=== PATIENT | female | born 1955 | race Caucasian/White ===

== ENCOUNTER → 2017-08-11 11:19 | Outpatient (CLI) | payer OTHER, SELFPAY ==
--- NOTE | 2017-08-11 | DI.MG.S_ITS ---
BILATERAL DIGITAL SCREENING MAMMOGRAM 3D/2D WITH CAD: 08/11/2017 CLINICAL: Routine screening. Family history of breast cancer. Comparison is made to exams dated: 08/01/2016 mammogram, 07/30/2015 mammogram, and 07/24/2014 mammogram - [facility]. There are scattered fibroglandular elements in both breasts. Current study was also evaluated with a Computer Aided Detection (CAD) system. No significant masses, calcifications, or other findings are seen in either breast. There has been no significant interval change. IMPRESSION: NEGATIVE There is no mammographic evidence of malignancy. A 1 year screening mammogram is recommended. NOTE: For mammograms, a report in lay terms will be sent to the patient. Approximately 15% of breast malignancies will not be visualized mammographically. In the management of a palpable breast mass, a negative mammogram must not discourage biopsy of a clinically suspicious lesion. Electronically Signed By: Tianna romero/daniel:08/11/2017 14:47:50 letter sent: Normal Exam ACR BI-RADS Category 1: Negative 3341F
== END ==
PROVIDERS: PCP Family Medicine; Visit Provider Family Medicine
DX: Z12.31 Encounter for screening mammogram for malignant neoplasm of breast (principal); Z80.3 Family history of malignant neoplasm of breast
CPT/HCPCS: 77063; 77067

== ENCOUNTER → 2018-04-19 13:36 | Outpatient (CLI) | payer OTHER, SELFPAY ==
--- NOTE | 2018-04-19 | DI.RAD.S_ITS ---
PROCEDURE: XR CHEST 2V INDICATIONS: COUGH TECHNIQUE: 2 views of the chest were acquired. COMPARISON: [facility], CHEST 2 VIEW, 03/20/2014, 15:25. [facility], CHEST 2 VIEW, 01/21/2014, 10:18. FINDINGS: Surgical changes and devices: None within the chest. Old low cervical spine anterior fusion plate again noted. Lungs and pleura: Lungs are clear. No pleural effusions or pneumothorax. Mediastinum: Mediastinal contours are normal. Heart size is normal. The right medial cardiophrenic fat pad is again seen to be prominent, present at least since 2013. Bones and chest wall: No suspicious bony abnormalities. Soft tissues appear unremarkable. IMPRESSION: Normal for age, source of current cough symptoms is not seen. Dictated by: Aditya Coppola M.D. on 04/19/2018 at 14:20 Approved by: Aditya Coppola M.D. on 04/19/2018 at 14:21
== END ==
PROVIDERS: PCP Family Medicine; Visit Provider Family Medicine
DX: R05 Cough (principal)
CPT/HCPCS: 71046

== ENCOUNTER → 2018-05-14 12:51 | Outpatient (CLI) | payer OTHER, SELFPAY ==
--- NOTE | 2018-05-21 16:36 | PM.PFT.1 ---
Pulmonary Function Test Referral & Results Date Patient Seen: 05/14/18 Requesting provider: David Calderon Indication: Cough Results: The spirometry demonstrates an FVC of 3.28 L which is 80% of predicted. The FEV1 was measured at 2.37 L which is 83% of predicted. The FEV1/FVC ratio was 72 which is 93% of predicted. Following the administration of bronchodilator there was no appreciable change. Lung volumes show an SVC of 3.28 L which is 96% of predicted. The diffusing capacity was measured at 20.89 which is 70% of predicted. No hemoglobin value was provided, so no correction for potential anemia could be made, if appropriate. The maximum voluntary ventilation was normal Interpretation: This study demonstrates normal spirometry although there may be a slight reduction in FEV1 suggesting minimal obstructive lung disease Diffusing capacity is minimally reduced as well, suggesting some element of disease at the capillary alveolar level, unless patient is anemic. Clinical correlation suggested
== END ==
PROVIDERS: PCP Family Medicine; Visit Provider Family Medicine
DX: R05 Cough (principal)
CPT/HCPCS: 94060; 94726; 94729

== ENCOUNTER → 2018-08-12 10:23 | Outpatient (CLI) | payer OTHER, SELFPAY ==
--- NOTE | 2018-08-12 10:26 | DI.MG.S_ITS ---
BILATERAL DIGITAL SCREENING MAMMOGRAM 3D/2D WITH CAD: 08/12/2018 CLINICAL: Routine screening. Family history of breast cancer. Comparison is made to exams dated: 08/11/2017 mammogram, 07/30/2015 mammogram, 07/24/2014 mammogram, 08/01/2016 mammogram, and 07/22/2013 mammogram - [facility]. There are scattered fibroglandular elements in both breasts. Current study was also evaluated with a Computer Aided Detection (CAD) system. There is a circular mole marker on the left breast. There is a linear scar marker overlying the left breast. No significant masses, calcifications, or other findings are seen in either breast. There has been no significant interval change. IMPRESSION: NEGATIVE There is no mammographic evidence of malignancy. A 1 year screening mammogram is recommended. This exam was interpreted at Station ID: [id number]. NOTE: For mammograms, a report in lay terms will be sent to the patient. Approximately 15% of breast malignancies will not be visualized mammographically. In the management of a palpable breast mass, a negative mammogram must not discourage biopsy of a clinically suspicious lesion. Electronically Signed By: Ryan Obregon M.D. ecl/:08/12/2018 18:18:57 letter sent: Normal Exam ACR BI-RADS Category 1: Negative 3341F
== END ==
PROVIDERS: PCP Family Medicine; Visit Provider Family Medicine
DX: Z12.31 Encounter for screening mammogram for malignant neoplasm of breast (principal); Z80.3 Family history of malignant neoplasm of breast
CPT/HCPCS: 77063; 77067

== ENCOUNTER → 2019-03-11 15:54 | Outpatient (CLI) | payer OTHER, SELFPAY ==
--- NOTE | 2019-03-11 15:57 | DI.RAD.S_ITS ---
PROCEDURE: XR CHEST 2V INDICATIONS: COUGH TECHNIQUE: 2 views of the chest were acquired. COMPARISON: [facility], CR, XR CHEST 2V, 04/19/2018, 13:41. FINDINGS: Surgical changes and devices: Cervical spine fixation hardware. Lungs and pleura: Scattered subsegmental atelectasis and/or scarring. No focal consolidation. Central bronchial wall thickening noted . No pleural effusions or pneumothorax. Mediastinum: Mediastinal contours are normal. Heart size is normal. Bones and chest wall: No suspicious bony abnormalities. Soft tissues appear unremarkable. IMPRESSION: Scattered subsegmental atelectasis and/or scarring. No acute consolidation. Bronchial wall thickening suggestive of viral bronchitis and/or reactive airways disease Dictated by: Nahid Jones M.D. on 03/11/2019 at 17:54 Approved by: Nahid Jones M.D. on 03/11/2019 at 17:55
== END ==
PROVIDERS: PCP Family Medicine; Visit Provider Family Medicine
DX: R05 Cough (principal)
CPT/HCPCS: 71046

== ENCOUNTER → 2019-04-22 10:25 | Outpatient (CLI) | payer OTHER, SELFPAY ==
--- NOTE | 2019-04-22 11:34 | DI.CT.S_ITS ---
PROCEDURE: CT CHEST W CON INDICATIONS: COPD, CHRONIC COUGH TECHNIQUE: After the administration of intravenous contrast, 5 mm thick sections acquired from the pulmonary apices to the posterior costophrenic angles. 1 mm axial lung, 5 mm thick coronal and sagittal reformats and 7 mm axial MIP were acquired. For radiation dose reduction, the following was used: automated exposure control, adjustment of mA and/or kV according to patient size. COMPARISON: [facility], CT, THORAX WITHOUT CONTRAST, 05/24/2010, 11:06. FINDINGS: Image quality: Excellent. Lungs and pleura: No acute consolidation. 5 mm nodule seen on image 172 series 3 in the right lower lobe, this is grossly unchanged since 2010. No pleural effusions or pneumothorax. Airway thickening in keeping with nonspecific bronchitis and/or reactive airways disease. Right middle lobe and right upper lobe mild bronchiectasis. Mediastinum: Heart size is normal. No pericardial effusion. No mediastinal or hilar adenopathy by size criteria. Thoracic aorta and central pulmonary arteries are normal in size. Esophagus is normal in caliber. No hiatal hernia. Small posterior fat containing diaphragmatic hernia. Bones and chest wall: No suspicious bony lesions. No vertebral body compression fractures. No axillary or supraclavicular adenopathy by size criteria. Thyroid gland negative. Hepatic hypodensities involving the left lobe on image 57/2 and the dome on image 49/2 are too small to characterize IMPRESSION: No acute consolidation. Airway thickening in keeping with nonspecific bronchitis and/or reactive airways disease. Mild scarring/atelectasis, and minimal bronchiectasis as above Additional chronic and incidental findings as above. Dictated by: Nahid Jones M.D. on 04/22/2019 at 16:02 Approved by: Nahid Jones M.D. on 04/22/2019 at 16:10
== END ==
PROVIDERS: PCP Family Medicine; Referring Provider Family Medicine; Visit Provider Family Medicine
DX: J44.9 Chronic obstructive pulmonary disease, unspecified (principal); R05 Cough; R91.1 Solitary pulmonary nodule; K44.9 Diaphragmatic hernia without obstruction or gangrene
CPT/HCPCS: 71260; Q9967

== ENCOUNTER → 2019-09-10 11:25 | Outpatient (CLI) | payer MEDICARE, OTHER, SELFPAY ==
--- NOTE | 2019-09-10 | DI.MG.S_ITS ---
BILATERAL DIGITAL SCREENING MAMMOGRAM 3D/2D WITH CAD: 09/10/2019 CLINICAL: Routine screening. Family history of breast cancer. Comparison is made to exams dated: 08/12/2018 mammogram, 08/11/2017 mammogram, and 08/01/2016 mammogram - [facility]. There are scattered fibroglandular elements in both breasts. Current study was also evaluated with a Computer Aided Detection (CAD) system. No significant masses, calcifications, or other findings are seen in either breast. There has been no significant interval change. IMPRESSION: NEGATIVE There is no mammographic evidence of malignancy. A 1 year screening mammogram is recommended. This exam was interpreted at Station ID: [id number]. NOTE: For mammograms, a report in lay terms will be sent to the patient. Approximately 15% of breast malignancies will not be visualized mammographically. In the management of a palpable breast mass, a negative mammogram must not discourage biopsy of a clinically suspicious lesion. Electronically Signed By: Agata orr/daniel:09/12/2019 09:46:44 letter sent: Normal Exam ACR BI-RADS Category 1: Negative 3341F
== END ==
PROVIDERS: PCP Family Medicine; Referring Provider Family Medicine; Visit Provider Family Medicine
DX: Z12.31 Encounter for screening mammogram for malignant neoplasm of breast (principal); Z80.3 Family history of malignant neoplasm of breast
CPT/HCPCS: 77063; 77067

== ENCOUNTER → 2020-04-04 09:43 | Outpatient (CLI) | payer MEDICARE, OTHER, SELFPAY ==
[2020-04-04 12:16] LABS: COVID19 -Nasal RAPID Negative (Negative)
== END ==
PROVIDERS: PCP Family Medicine; Visit Provider Student in an Organized Health Care Education/Training Program
DX: Z20.822 Contact with and (suspected) exposure to COVID-19 (principal)
CPT/HCPCS: 87635; C9803

== ENCOUNTER 2020-04-06 12:30 | Day surgery (SDC) | payer MEDICARE, OTHER, SELFPAY ==
[2020-04-06] VITALS (10 sets, daily range): BP systolic 97–146; BP diastolic 50–73; PULSE 71–94; RESP 9–18; TEMP 36.2–36.9; O2SAT 94–99; BMI 33.0
--- NOTE | 2020-04-06 12:00 | PM.HP.1 ---
History of Present Illness History of Present Illness Date Patient Seen: 04/06/20 Chief complaint: SDC Narrative: 64 year old female comes in today for consideration of a screening colonoscopy. Has had 6-7 lifetime colonoscopies, most recently: 1. 03/17/2002: Dr. Watts. Colonoscopy to hepatic flexure. Indicated due to history of ulcerative proctitis. Could not get past hepatic flexure due to redundant sigmoid colon. Normal findings. 2. 02/03/2014: Dr. Watts. Colonoscopy to cecum. Indicated for screening. Hepatic flexure polyp x1, tubular adenoma. There have been no lower GI symptoms suggesting disease such as change in bowel habits, bleeding, abdominal pain or anemia. There's been no family history of colon cancer or colon polyps. Overall health issues have been stable, including no major cardiac events for at least 6 weeks. PCP: Dr. Calderon Past medical history: Diabetes mellitus type 2 COPD Hyperlipidemia Hypothyroidism History of tobacco dependence, 40 pack years Past surgical history: Total vaginal hysterectomy, bilateral salpingectomy Cystocele/enterocele repair, high uterosacral ligament Bladder suspension, sling, 2018 Abdominal hernia repair Appendectomy C6-C7 diskectomy and fusion, 2013 Family history: No colon cancer or colon polyps Social history: , retired labor. . 24 year old son was killed in [facility] in [place]. Meds Home Medications and Allergies Home Medications Medication Instructions Recorded Confirmed Type atorvastatin 20 mg PO DAILY 04/06/20 04/06/20 History omeprazole 20 mg PO DAILY 04/06/20 04/06/20 History tamsulosin 0.4 mg PO BEDTIME 04/06/20 04/06/20 History Allergies Allergy/AdvReac Type Severity Reaction Status Date / Time erythromycin base Allergy Intermediate Unverified 05/27/17 12:54 Penicillins [PENICILLINS] Allergy Unknown Unverified 05/27/17 12:54 Review of Systems Review of Systems ROS: Yes All systems reviewed with the patient and are negative except as otherwise documented Exam Narrative Exam Narrative: GENERAL: Alert and oriented, appearing stated age and in no acute distress. HEENT: Head normocephalic/atraumatic. Pupils equal, round, and reactive to light and accomodation. Extraocular muscles intact. Tympanic membranes clear. Nasal mucosa moist, septum midline. Oral mucosa moist, no lesions. Neck soft and supple, no lymphadenopathy. LUNGS: Clear to ausculation bilaterally, no wheezes, rhonchi or rales. CV: Normal S1 and S2 with regular rate and rhythm, no audible murmurs, rubs or gallops. ABDOMEN: Soft, non-tender, non-distended, no organomegaly. Positive bowel sounds. EXTREMITIES: No clubbing, cyanosis, or edema. NEURO: Cranial nerves II through XII grossly intact, no focal deficits. PSYCH: Alert and oriented x 3. SKIN: No concerning lesions. Assessment & Plan Assessment & Plan narrative: 1. History of tubular adenoma 2. Screening for colon cancer Plan for colonoscopy. The nature and character of the procedure as well as anticipated results were discussed. The possibility of not completing the procedure was also discussed. Possible complications including aspiration pneumonia, bleeding, perforation and reaction to medications either for sedation or preparation and missed lesions were discussed. Questions were answered and proceeding to the colonoscopy was elected. Informed consent signed. I sincerely appreciate the referral allowing me to participate in this patient's care. Please contact me with any questions or concerns.
--- NOTE | 2020-04-06 12:09 | PM.OP.ENDO ---
Operative Date/Time/Diagnoses Date of procedure: 04/06/20 Procedure Notes SCOAP/Timeout: 3:47 pm Procedure in detail: ENDOSCOPIST: Regal Fletcher MD Sedation RN: Sruthi Phelps RN Sedation start time: 3:48 p.m. Sedation end time: 2:07 p.m. PROCEDURE: Flexible sigmoidoscopy INDICATIONS: 1. History of colon polyps 2. Screening for colon cancer MEDICATION: Levsin 0.125 mg sublingual, incremental doses of Versed and fentanyl until appropriate level sedation achieved. Narcan 0.2 mg IV x 1. ASA CLASS: 2 PROCEDURE TIME: 13 minutes COMPLICATIONS: None. EXTENT OF PROCEDURE: Cecum. QUALITY OF PREP: Good with portions of liquid stool. PROCEDURE: Prior to insertion of the colonoscope, a digital rectal examination was accomplished with circumferential palpation of the distal rectal mucosa without significant findings being noted. The high-definition pediatric colonoscope was passed into the rectum in the usual fashion and advanced over to the hepatic flexure with difficulty secondary to tortuosity and suspected colonic adhesions due to her previous abdominal and pelvic surgeries. At this point in the procedure, her pain was uncontrolled but due to low oxygen saturations, she could not tolerate any further medication. Narcan 0.2 mg x 1 given for reversal with good effect and the colonoscope was withdrawn. As the colonoscope was withdrawn, care was taken to expose and inspect the haustral folds and no abnormalities were seen. RECTUM: Normal. There was no significant perianal disease. The remainder of the rectum was inspected and there was moderate external hemorrhoid disease. The scope was withdrawn. IMPRESSION: 1. Normal flexible sigmoidoscopy. 2. External hemorrhoids PLAN: 1. Due to sigmoid tortuosity and suspected colonic adhesions from previous abdominal pelvic surgeries, recommend future colon cancer screening with CT colonography rather than colonoscopy. Recommended recall 5-10 years. The possibility of a missed lesion including a malignancy has been discussed with the patient previously. Potential alarm symptoms have been discussed and should be reported immediately.
[2020-04-06] MEDS: HYOSCYAMINE 0.125 MG TABLET PO (13:17)
[2020-04-06] MEDS: LACTATED RINGERS 1,000 ML 200 ML IV (13:23)
[2020-04-06] MEDS: ONDANSETRON 4 MG/2 ML INJ IV ×2 (13:49→14:57)
[2020-04-06] MEDS: NALOXONE 0.4 MG/ML VIAL 0.2 MG IV (14:07)
[2020-04-06] MEDS: MIDAZOLAM 5 MG/5 ML VIAL IV (14:19)
[2020-04-06] MEDS: fentaNYL 250 MCG/5 ML INJ IV (14:20)
[2020-04-06] MEDS: FLUMAZENIL 0.5 MG/5 ML MDV 0.2 MG IV (14:28)
--- NOTE | 2020-04-06 14:42 | SUR.PHASEI ---
1429: 0.2mg of Romazicon administered by MANUEL Canseco Endo as pt was still not responding to stimuli
[2020-04-06] MEDS: METOCLOPRAMIDE 10 MG/2 ML INJ IV (15:12)
== END 2020-04-06 16:15 | disposition home or self-care (01) ==
PROVIDERS: PCP Family Medicine; Referring Provider Student in an Organized Health Care Education/Training Program; Visit Provider Student in an Organized Health Care Education/Training Program
PROC: 0DJD8ZZ Inspection of Lower Intestinal Tract, Via Natural or Artificial Opening Endoscopic (ICD-10-PCS; CPT 45378; principal; 2020-04-06 13:45)
DX: Z12.11 Encounter for screening for malignant neoplasm of colon (principal); Z86.010 Personal history of colon polyps; K64.4 Residual hemorrhoidal skin tags; Z53.09 Procedure and treatment not carried out because of other contraindication
CPT/HCPCS: 45378; J2250; J2310; J2405; J2765; J3010

== ENCOUNTER → 2020-09-10 14:09 | Outpatient (CLI) | payer MEDICARE, OTHER, SELFPAY ==
--- NOTE | 2020-09-10 | DI.MG.S_ITS ---
BILATERAL DIGITAL SCREENING MAMMOGRAM 3D/2D WITH CAD: 09/10/2020 CLINICAL: Routine screening. Family history of breast cancer. Comparison is made to exams dated: 09/10/2019 mammogram, 08/12/2018 mammogram, and 08/11/2017 mammogram - [facility]. There are scattered fibroglandular elements in both breasts. Current study was also evaluated with a Computer Aided Detection (CAD) system. No significant masses, calcifications, or other findings are seen in either breast. There has been no significant interval change. IMPRESSION: NEGATIVE There is no mammographic evidence of malignancy. A 1 year screening mammogram is recommended. This exam was interpreted at Station ID: [id number]. NOTE: For mammograms, a report in lay terms will be sent to the patient. Approximately 15% of breast malignancies will not be visualized mammographically. In the management of a palpable breast mass, a negative mammogram must not discourage biopsy of a clinically suspicious lesion. Electronically Signed By: Joshua Benavidez M.D., jr/daniel:09/10/2020 14:39:46 letter sent: Normal Exam ACR BI-RADS Category 1: Negative 3341F
== END ==
PROVIDERS: PCP Family Medicine; Referring Provider Family Medicine; Visit Provider Family Medicine
DX: Z12.31 Encounter for screening mammogram for malignant neoplasm of breast (principal); Z80.3 Family history of malignant neoplasm of breast
CPT/HCPCS: 77063; 77067

== ENCOUNTER → 2021-06-20 12:29 | Outpatient (ROUT) | payer MEDICARE, OTHER, SELFPAY ==
[2021-06-20 13:34] LABS: COVID-19 CEPHEID PCR (VTM/NP) Negative (Negative)
== END ==
PROVIDERS: PCP Family Medicine; Visit Provider Family Medicine
DX: R50.9 Fever, unspecified (principal); R05.9 Cough, unspecified; Z20.822 Contact with and (suspected) exposure to COVID-19
CPT/HCPCS: U0003; U0005

== ENCOUNTER → 2021-09-11 12:58 | Outpatient (CLI) | payer MEDICARE, OTHER, SELFPAY ==
--- NOTE | 2021-09-11 12:59 | DI.MG.S_ITS ---
BILATERAL DIGITAL SCREENING MAMMOGRAM 3D/2D WITH CAD: 09/11/2021 CLINICAL: Routine screening. Family history of breast cancer. Comparison is made to exams dated: 09/10/2020 mammogram, 09/10/2019 mammogram, and 08/12/2018 mammogram - [facility]. There are scattered fibroglandular elements in both breasts. Current study was also evaluated with a Computer Aided Detection (CAD) system. No significant masses, calcifications, or other findings are seen in either breast. There has been no significant interval change. IMPRESSION: NEGATIVE There is no mammographic evidence of malignancy. A 1 year screening mammogram is recommended. Based on the Tyrer Cuzick model (a risk assessment model) the patient's lifetime risk is 7.0% and her 10 year risk is 3.7%. According to the ACR, ACS, and NCCN guidelines, an annual breast MRI exam along with mammogram is recommended if the patient's lifetime risk is 20% or greater. This exam was interpreted at Station ID: [id number]. NOTE: For mammograms, a report in lay terms will be sent to the patient. Approximately 15% of breast malignancies will not be visualized mammographically. In the management of a palpable breast mass, a negative mammogram must not discourage biopsy of a clinically suspicious lesion. Electronically Signed By: Agata orr/daniel:09/11/2021 16:06:51 letter sent: Normal Exam ACR BI-RADS Category 1: Negative 3341F
== END ==
PROVIDERS: PCP Family Medicine; Referring Provider Family Medicine; Visit Provider Family Medicine
DX: Z12.31 Encounter for screening mammogram for malignant neoplasm of breast (principal); Z80.3 Family history of malignant neoplasm of breast
CPT/HCPCS: 77063; 77067

== ENCOUNTER → 2022-01-17 16:28 | Outpatient (CLI) | payer MEDICARE, OTHER, SELFPAY ==
--- NOTE | 2022-01-17 16:32 | DI.RAD.S_ITS ---
PROCEDURE: XR CHEST 2V INDICATIONS: Cough TECHNIQUE: 2 views of the chest were acquired. COMPARISON: [facility], CR, XR CHEST 2V, 03/11/2019, 15:54. [facility], CR, XR CHEST 2V, 04/19/2018, 13:41. FINDINGS: Lungs and pleura: Lungs are clear. No pleural effusions or pneumothorax. Mediastinum: Mediastinal contours are normal. Heart size is normal. Bones and chest wall: No suspicious bony abnormalities. Soft tissues appear unremarkable. IMPRESSION: No acute cardiopulmonary abnormality. Dictated by: Srinivasa Ramírez M.D. on 01/17/2022 at 16:58 Approved by: Srinivasa Ramírez M.D. on 01/17/2022 at 17:02
== END ==
PROVIDERS: PCP Family Medicine; Referring Provider Registered Nurse; Visit Provider Registered Nurse
DX: J06.9 Acute upper respiratory infection, unspecified (principal); R05.1 Acute cough
CPT/HCPCS: 71046

== ENCOUNTER → 2022-01-17 19:48 | Outpatient (CLI) | payer MEDICARE, OTHER, SELFPAY ==
[2022-01-17 20:32] LABS: Influenza A - CEPHEID Flu A NEGATIVE (NEGATIVE); Influenza B - CEPHEID Flu B NEGATIVE (NEGATIVE); Respiratory Syncytial Virus Negative (Negative)
[2022-01-17 20:39] LABS: COVID-19 CEPHEID 4-PLEX PCR POSITIVE (Negative)
== END ==
PROVIDERS: PCP Family Medicine; Visit Provider Registered Nurse
DX: J06.9 Acute upper respiratory infection, unspecified (principal); U07.1 COVID-19; R05.1 Acute cough
CPT/HCPCS: 0241U; 71046

== ENCOUNTER → 2022-03-03 12:16 | Outpatient (CLI) | payer MEDICARE, OTHER, SELFPAY ==
--- NOTE | 2022-03-03 | DI.RAD.S_ITS ---
PROCEDURE: XR DEXA AXIAL SKELETON INDICATIONS: OSTEOPOROSIS SCREENING COMPARISON: None. FINDINGS: This blank DEXA report has been sent in error by the PACS system. The correct and complete report will be forthcoming in 1-2 days. Thank you for your patience and understanding. Dictated by: Joshua Benavidez M.D. on 03/03/2022 at 16:24 Approved by: Joshua Benavidez M.D. on 03/03/2022 at 16:24
== END ==
PROVIDERS: PCP Family Medicine; Referring Provider Family Medicine; Visit Provider Family Medicine
DX: Z78.0 Asymptomatic menopausal state (principal); Z13.820 Encounter for screening for osteoporosis; M85.88 Other specified disorders of bone density and structure, other site; Z90.710 Acquired absence of both cervix and uterus
CPT/HCPCS: 77080

== ENCOUNTER → 2022-09-12 13:04 | Outpatient (CLI) | payer MEDICARE, OTHER, SELFPAY ==
--- NOTE | 2022-09-12 | DI.MG.S_ITS ---
BILATERAL DIGITAL SCREENING MAMMOGRAM 3D/2D WITH CAD: 09/12/2022 CLINICAL: Routine screening. Family history of breast cancer. Comparison is made to exams dated: 09/11/2021 mammogram, 09/10/2020 mammogram, and 09/10/2019 mammogram - [facility]. There are scattered areas of fibroglandular density in both breasts (category b / 25%-50% glandular tissue). Current study was also evaluated with a Computer Aided Detection (CAD) system. No significant masses, calcifications, or other findings are seen in either breast. There has been no significant interval change. IMPRESSION: NEGATIVE There is no mammographic evidence of malignancy. A 1 year screening mammogram is recommended. Based on the Tyrer Cuzick model (a risk assessment model) the patient's lifetime risk is 6.7% and her 10 year risk is 3.7%. According to the ACR, ACS, and NCCN guidelines, an annual breast MRI exam along with mammogram is recommended if the patient's lifetime risk is 20% or greater. This exam was interpreted at Station ID: [id number]. NOTE: For mammograms, a report in lay terms will be sent to the patient. Approximately 15% of breast malignancies will not be visualized mammographically. In the management of a palpable breast mass, a negative mammogram must not discourage biopsy of a clinically suspicious lesion. Electronically Signed By: Agata orr/daniel:09/12/2022 16:12:41 letter sent: Normal Exam ACR BI-RADS Category 1: Negative 3341F
== END ==
PROVIDERS: PCP Family Medicine; Referring Provider Family Medicine; Visit Provider Family Medicine
DX: Z12.31 Encounter for screening mammogram for malignant neoplasm of breast (principal); Z80.3 Family history of malignant neoplasm of breast
CPT/HCPCS: 77063; 77067

== ENCOUNTER → 2023-09-16 14:00 | Outpatient (CLI) | payer MEDICARE, OTHER, SELFPAY ==
--- NOTE | 2023-09-16 14:03 | DI.MG.S_ITS ---
BILATERAL DIGITAL SCREENING MAMMOGRAM 3D/2D WITH CAD: 09/16/2023 CLINICAL: Routine screening. Family history of breast cancer. Comparison is made to exams dated: 09/12/2022 mammogram, 09/11/2021 mammogram, 09/10/2020 mammogram, and 09/10/2019 mammogram - [facility]. There are scattered areas of fibroglandular density in both breasts (category b / 25%-50% glandular tissue). Current study was also evaluated with a Computer Aided Detection (CAD) system. There are benign post operative findings in the left breast. No significant masses, calcifications, or other findings are seen in either breast. There has been no significant interval change. IMPRESSION: BENIGN There is no mammographic evidence of malignancy. A 1 year screening mammogram is recommended. Based on the Tyrer Cuzick model (a risk assessment model) the patient's lifetime risk is 6.3% and her 10 year risk is 3.7%. According to the ACR, ACS, and NCCN guidelines, an annual breast MRI exam along with mammogram is recommended if the patient's lifetime risk is 20% or greater. This exam was interpreted at Station ID: [id number]. NOTE: For mammograms, a report in lay terms will be sent to the patient. Approximately 15% of breast malignancies will not be visualized mammographically. In the management of a palpable breast mass, a negative mammogram must not discourage biopsy of a clinically suspicious lesion. Electronically Signed By: Norm doe/daniel:09/16/2023 15:10:35 letter sent: Normal Exam ACR BI-RADS Category 2: Benign Finding(s) 3342F
== END ==
PROVIDERS: PCP Family Medicine; Referring Provider Family Medicine; Visit Provider Family Medicine
DX: Z12.31 Encounter for screening mammogram for malignant neoplasm of breast (principal); Z80.3 Family history of malignant neoplasm of breast; R92.323 Mammographic fibroglandular density, bilateral breasts
CPT/HCPCS: 77063; 77067

== ENCOUNTER → 2024-05-27 14:35 | Outpatient (ROUT) | payer MEDICARE, OTHER, SELFPAY ==
[2024-05-27 15:36] LABS: Influenza A - CEPHEID Flu A NEGATIVE (NEGATIVE); Influenza B - CEPHEID Flu B NEGATIVE (NEGATIVE); Respiratory Syncytial Virus Negative (Negative)
[2024-05-27 15:41] LABS: COVID-19 CEPHEID 4-PLEX PCR Negative (Negative)
== END ==
PROVIDERS: PCP Family Medicine; Visit Provider Family Medicine
DX: R50.9 Fever, unspecified (principal); R51.9 Headache, unspecified; R09.81 Nasal congestion
CPT/HCPCS: 0241U